=== PATIENT | female | born 1935 | race Caucasian/White ===

== ENCOUNTER → 2017-09-16 | Outpatient (CLI) | payer BC ==
[~2017-09-16] MED LIST: CONTRAST GIVEN. MC
[2017-09-16] MEDS: IOHEXOL 300 MG/ML 100ML VIAL. IV (14:00)
[2017-09-16] MEDS: IOHEXOL 240 MG/ML 50ML VIAL. PO (14:00)
== END | disposition home or self-care (01) ==
LOC: CT 13:16
DX: Z12.11 Encounter for screening for malignant neoplasm of colon (principal)
CPT/HCPCS: 74177; Q9966; Q9967